=== PATIENT | female | born 1980 | race Caucasian/White ===

== ENCOUNTER 2024-03-13 12:10 | Emergency (ER) | payer MEDICAID ==
[2024-03-13 12:56] VITALS: BP 146/71; PULSE 83
== END 2024-03-13 13:05 | disposition home or self-care (01) ==
LOC: VM.ED 12:10
DX: K59.00 Constipation, unspecified (principal); Z88.5 Allergy status to narcotic agent; Z88.8 Allergy status to other drugs, medicaments and biological substances; Z79.51 Long term (current) use of inhaled steroids; Z79.899 Other long term (current) drug therapy
CPT/HCPCS: 74019; 99283

== ENCOUNTER 2024-09-08 16:02 | Emergency (ER) | payer MEDICAID ==
[2024-09-08 16:34] LABS: BASOPHILS PERCENT AUTO 0.3 % (0.2-1.2); EOSINOPHILS ABSOLUTE AUTO 0.2 x10^3/uL (0.0-0.5); EOSINOPHILS PERCENT AUTO 2.5 % (0.0-4.0); HEMATOCRIT 53.5 % (33.0-47.0); HEMOGLOBIN 18.8 g/dL (12.0-16.0); IMMATURE GRAN ABSOLUTE AUTO 0.01 x10^3/uL (0.00-0.07); LYMPHOCYTES ABSOLUTE AUTO 2.2 x10^3/uL (1.0-4.8); LYMPHOCYTES PERCENT AUTO 33.2 % (25.0-50.0); MEAN CORPUSCULAR HEMOGLOBIN 30.7 pg (26.0-32.0); MEAN CORPUSCULAR HGB CONC 35.1 g/dL (32.0-36.0); MEAN CORPUSCULAR VOLUME 87.3 fL (78.0-93.0); MONOCYTES ABSOLUTE AUTO 0.4 x10^3/uL (0.0-0.8); MONOCYTES PERCENT AUTO 6.3 % (2.0-11.0); NEUTROPHILS ABSOLUTE AUTO 3.9 x10^3/uL (1.8-7.7); NEUTROPHILS PERCENT AUTO 57.6 % (50.0-80.0); PLATELET COUNT,PLT 166 x10^3/uL (130-400); RED BLOOD CELL COUNT 6.13 x10^6/uL (4.00-5.50); WHITE BLOOD CELL COUNT,WBC 6.7 x10^3/uL (4.0-10.0)
[2024-09-08 17:05] LABS: A/G RATIO 0.67; ALANINE AMINOTRANSFERASE,ALT 51 U/L (14-59); ALBUMIN 3.5 g/dL (3.4-5.0); ALKALINE PHOSPHATASE 262 U/L (46-116); AMYLASE 67 U/L (25-115); ASPARTATE AMNIOTRANSFERASE,AST 49 U/L (15-37); BILIRUBIN TOTAL 0.7 mg/dL (0.2-1.0); BLOOD UREA NITROGEN,BUN 18 mg/dL (7-18); CALCIUM 9.8 mg/dL (8.5-10.1); CARBON DIOXIDE,CO2 23 mmol/L (21-32); CHLORIDE,CL 100 mmol/L (98-107); CREATININE 1.3 mg/dL (0.55-1.02); GLUCOSE RANDOM 108 mg/dL (70-99); LIPASE 89 U/L (19-71); POTASSIUM,K 4.6 mmol/L (3.5-5.1); PROTEIN TOTAL,TP 8.7 g/dL (6.4-8.2); SODIUM,NA 134 mmol/L (136-145)
[2024-09-08 17:10] LABS: ANION GAP 15.6 mmol/L (5-15); ESTIMATED GFR 53 mL/min (>=60)
[2024-09-08] MEDS: Sodium Chloride 0.9% 500 ML IV ONE (17:30)
[2024-09-08] MEDS: traMADol 50 MG Tab PO ONE (18:00)
[2024-09-08 18:12] VITALS: BP 145/88; PULSE 82
== END 2024-09-08 18:23 | disposition home or self-care (01) ==
LOC: VM.ED 16:02
DX: R10.11 Right upper quadrant pain (principal); E78.00 Pure hypercholesterolemia, unspecified; Z88.5 Allergy status to narcotic agent; Z88.6 Allergy status to analgesic agent; Z88.8 Allergy status to other drugs, medicaments and biological substances; Z79.899 Other long term (current) drug therapy; Z90.49 Acquired absence of other specified parts of digestive tract
CPT/HCPCS: 71250; 74176; 80053; 82140; 82150; 83690; 85025; 99284; J7030; A9270-GY

== ENCOUNTER 2024-10-20 14:00 | Emergency (ER) | payer MEDICAID ==
[2024-10-20 14:19] VITALS: PULSE 96
[2024-10-20] MEDS: Take Home: LORazepam 0.5 MG Tab, 2 Tab Pack PO ONE (14:27)
[2024-10-20] MEDS: LORazepam 2 MG/ML SDV IM ONE (14:27)
[2024-10-20 15:00] VITALS: BP 170/96
== END 2024-10-20 14:50 | disposition home or self-care (01) ==
LOC: VM.ED 14:00
DX: F41.0 Panic disorder [episodic paroxysmal anxiety] (principal); E66.9 Obesity, unspecified; F17.210 Nicotine dependence, cigarettes, uncomplicated; Z88.5 Allergy status to narcotic agent; Z88.8 Allergy status to other drugs, medicaments and biological substances; Z79.899 Other long term (current) drug therapy; Z90.49 Acquired absence of other specified parts of digestive tract; Z68.41 Body mass index [BMI] 40.0-44.9, adult
CPT/HCPCS: 96372; 99283; 99284; A9270; J2060

== ENCOUNTER 2024-11-22 16:59 | Emergency (ER) | payer MEDICAID ==
[2024-11-22] MEDS ORDERED: Sodium Chloride 0.9% 10 ML Syringe FLUSH PRN (17:32)
[2024-11-22] MEDS: Ondansetron 4 MG/2 ML SDV IVPUSH ONE (17:34)
[2024-11-22] MEDS: HYDROmorphone 1 MG/ML Syringe IVPUSH ONE (17:39)
[2024-11-22 17:49] LABS: BASOPHILS PERCENT AUTO 0.1 % (0.2-1.2); EOSINOPHILS PERCENT AUTO 0.5 % (0.0-4.0); HEMATOCRIT 54.3 % (33.0-47.0); HEMOGLOBIN 18.6 g/dL (12.0-16.0); LYMPHOCYTES ABSOLUTE AUTO 1.4 x10^3/uL (1.0-4.8); LYMPHOCYTES PERCENT AUTO 16.3 % (25.0-50.0); MEAN CORPUSCULAR HEMOGLOBIN 30.2 pg (26.0-32.0); MEAN CORPUSCULAR HGB CONC 34.3 g/dL (32.0-36.0); MEAN CORPUSCULAR VOLUME 88.3 fL (78.0-93.0); MONOCYTES ABSOLUTE AUTO 0.2 x10^3/uL (0.0-0.8); MONOCYTES PERCENT AUTO 1.7 % (2.0-11.0); NEUTROPHILS ABSOLUTE AUTO 7.1 x10^3/uL (1.8-7.7); NEUTROPHILS PERCENT AUTO 80.3 % (50.0-80.0); PLATELET COUNT,PLT 172 x10^3/uL (130-400); RED BLOOD CELL COUNT 6.15 x10^6/uL (4.00-5.50); WHITE BLOOD CELL COUNT,WBC 8.9 x10^3/uL (4.0-10.0)
[2024-11-22 18:05] LABS: A/G RATIO 0.71; ALANINE AMINOTRANSFERASE,ALT 56 U/L (14-59); ALBUMIN 3.6 g/dL (3.4-5.0); ALKALINE PHOSPHATASE 288 U/L (46-116); ASPARTATE AMNIOTRANSFERASE,AST 43 U/L (15-37); BILIRUBIN TOTAL 0.7 mg/dL (0.2-1.0); BLOOD UREA NITROGEN,BUN 13 mg/dL (7-18); C-REACTIVE PROTEIN 1.59 mg/dL (<=0.50); CALCIUM 10.1 mg/dL (8.5-10.1); CARBON DIOXIDE,CO2 24 mmol/L (21-32); CHLORIDE,CL 97 mmol/L (98-107); CREATININE 1.2 mg/dL (0.55-1.02); GLUCOSE RANDOM 127 mg/dL (70-99); POTASSIUM,K 4.4 mmol/L (3.5-5.1); PROTEIN TOTAL,TP 8.7 g/dL (6.4-8.2); SODIUM,NA 133 mmol/L (136-145)
[2024-11-22 18:08] LABS: ANION GAP 16.4 mmol/L (5-15); ESTIMATED GFR 58 mL/min (>=60)
[2024-11-22 18:48] LABS: APPEARANCE,URINE CLEAR (CLEAR); BILIRUBIN,URINE NEGATIVE (NEGATIVE); COLOR,URINE DARK YELLOW (YELLOW); GLUCOSE,URINE NEGATIVE (NEGATIVE); KETONES,URINE NEGATIVE (NEGATIVE); LEUKOCYTE ESTERASE,URINE NEGATIVE (NEGATIVE); NITRITE,URINE NEGATIVE (NEGATIVE); OCCULT BLOOD,URINE TRACE-INTACT (NEGATIVE); PROTEIN,URINE 100 mg/dL (NEGATIVE)
[2024-11-22 18:53] LABS: BACTERIA,URINE OCCASIONAL /HPF (NOT SEEN); MUCUS,URINE FEW /LPF (NOT SEEN); SQUAMOUS EPITHELIAL CELLS,UR FEW /HPF (NOT SEEN); WBC,URINE 0-5 /HPF (NOT SEEN)
[2024-11-22] MEDS: Acetaminophen/oxyCODONE 325-5 MG Tab PO ONE (19:42)
[2024-11-22] MEDS: Cyclobenzaprine 10 MG Tab PO ONE (19:43)
[2024-11-22] MEDS: Take Home: Acetaminophen/oxyCODONE 325-5 MG, 5 Tab Pack PO ONE (19:50)
[2024-11-22 20:19] VITALS: BP 144/74; PULSE 98
== END 2024-11-22 19:56 | disposition left against medical advice (07) ==
LOC: VM.ED 16:59
DX: M54.50 Low back pain, unspecified (principal); E78.00 Pure hypercholesterolemia, unspecified; K21.9 Gastro-esophageal reflux disease without esophagitis; Z88.5 Allergy status to narcotic agent; Z88.8 Allergy status to other drugs, medicaments and biological substances; Z79.899 Other long term (current) drug therapy; Z90.49 Acquired absence of other specified parts of digestive tract
CPT/HCPCS: 36415; 72131; 80053; 81001; 85025; 85652; 86140; 96374; 96375; 99284-25; A9270-GY; J1171; J2405

== ENCOUNTER 2025-01-20 17:52 | Emergency (ER) | payer MEDICAID ==
[2025-01-20 18:04] VITALS: BP 149/89; PULSE 90
[2025-01-20] MEDS: ALPRAZolam 0.25 MG Tab PO ONE (18:17)
[2025-01-20] MEDS: Take Home: LORazepam 0.5 MG Tab, 2 Tab Pack PO ONE (18:27)
== END 2025-01-20 18:35 | disposition home or self-care (01) ==
LOC: VM.ED 17:52
DX: F41.0 Panic disorder [episodic paroxysmal anxiety] (principal); Z88.6 Allergy status to analgesic agent; Z88.8 Allergy status to other drugs, medicaments and biological substances; E66.9 Obesity, unspecified; Z90.49 Acquired absence of other specified parts of digestive tract
CPT/HCPCS: 99283; A9270

== ENCOUNTER 2025-05-19 22:20 | Emergency (ER) | payer MEDICAID ==
[2025-05-19] MEDS ORDERED: Sodium Chloride 0.9% 10 ML Syringe FLUSH PRN (22:44)
[2025-05-19 22:51] LABS: BASOPHILS ABSOLUTE AUTO 0.0 x10^3/uL (0.0-0.2); BASOPHILS PERCENT AUTO 0.2 % (0.2-1.2); EOSINOPHILS ABSOLUTE AUTO 0.3 x10^3/uL (0.0-0.5); EOSINOPHILS PERCENT AUTO 2.2 % (0.0-4.0); IMMATURE GRAN ABSOLUTE AUTO 0.04 x10^3/uL (0.00-0.07); IMMATURE GRAN PERCENT AUTO 0.30 % (0.00-0.43); LYMPHOCYTES ABSOLUTE AUTO 1.8 x10^3/uL (1.0-4.8); LYMPHOCYTES PERCENT AUTO 14.9 % (25.0-50.0); MONOCYTES ABSOLUTE AUTO 0.5 x10^3/uL (0.0-0.8); MONOCYTES PERCENT AUTO 4.3 % (2.0-11.0); NEUTROPHILS ABSOLUTE AUTO 9.5 x10^3/uL (1.8-7.7); NEUTROPHILS PERCENT AUTO 78.1 % (50.0-80.0); PLATELET COUNT,PLT 167 x10^3/uL (130-400); RED BLOOD CELL COUNT 6.07 x10^6/uL (4.00-5.50); WHITE BLOOD CELL COUNT,WBC 12.2 x10^3/uL (4.0-10.0)
[2025-05-19 23:05] LABS: BLOOD UREA NITROGEN,BUN 10.0 mg/dL (7-18); CARBON DIOXIDE,CO2 23.0 mmol/L (21-32); CREATININE 1.1 mg/dL (0.55-1.02); EST CRCL DRUG DOSING (CG) 64.13 mL/min; GLUCOSE RANDOM 160.0 mg/dL (70-99)
[2025-05-19 23:10] LABS: CHLORIDE,CL 100.0 mmol/L (98-107); POTASSIUM,K 4.4 mmol/L (3.5-5.1); SODIUM,NA 134.0 mmol/L (136-145)
[2025-05-19 23:11] LABS: ESTIMATED GFR 64.0 mL/min (>=60)
[2025-05-19 23:17] VITALS: PULSE 118
[2025-05-19 23:30] LABS: CORONAVIRUS COVID-19 NAA NEGATIVE (NEGATIVE); INFLUENZA A NAA NEGATIVE (NEGATIVE); INFLUENZA B NAA NEGATIVE (NEGATIVE); RESPIRATORY SYNCYTIAL VIR NAA NEGATIVE (NEGATIVE)
[2025-05-19] MEDS ORDERED: Ketorolac 15 MG/ML SDV IVPUSH ONE (23:58)
[2025-05-20] MEDS: Iopamidol 755 Mg/ML 100 ML Bottle IVPUSH ONE (00:17)
[2025-05-20] MEDS: Ondansetron 4 MG/2 ML SDV IVPUSH ONE (00:25)
[2025-05-20 01:12] VITALS: BP 110/56
[2025-05-20] MEDS: Take Home: Acetaminophen/HYDROcodone 325-5 MG, 5 Tab Pack PO ONE (01:13)
== END 2025-05-20 01:33 | disposition home or self-care (01) ==
LOC: VM.ED 22:20
DX: J18.9 Pneumonia, unspecified organism (principal); E78.00 Pure hypercholesterolemia, unspecified; Z88.8 Allergy status to other drugs, medicaments and biological substances; Z88.5 Allergy status to narcotic agent; Z88.2 Allergy status to sulfonamides; Z79.899 Other long term (current) drug therapy
CPT/HCPCS: 71045; 71275; 80048; 84484; 85025; 85379; 87637; 93005; 93010; 96374; 96375; 99284; 99285; A9270; J0696; J1171; J2405; Q9967

== ENCOUNTER 2025-05-26 18:37 | Emergency (ER) | payer MEDICAID ==
[2025-05-26 18:53] VITALS: BP 140/70; PULSE 79
[2025-05-26 19:15] LABS: BASOPHILS ABSOLUTE AUTO 0.0 x10^3/uL (0.0-0.2); BASOPHILS PERCENT AUTO 0.3 % (0.2-1.2); EOSINOPHILS ABSOLUTE AUTO 0.5 x10^3/uL (0.0-0.5); EOSINOPHILS PERCENT AUTO 6.1 % (0.0-4.0); IMMATURE GRAN ABSOLUTE AUTO 0.03 x10^3/uL (0.00-0.07); IMMATURE GRAN PERCENT AUTO 0.40 % (0.00-0.43); LYMPHOCYTES ABSOLUTE AUTO 2.1 x10^3/uL (1.0-4.8); LYMPHOCYTES PERCENT AUTO 27.0 % (25.0-50.0); MONOCYTES ABSOLUTE AUTO 0.4 x10^3/uL (0.0-0.8); MONOCYTES PERCENT AUTO 5.3 % (2.0-11.0); NEUTROPHILS ABSOLUTE AUTO 4.8 x10^3/uL (1.8-7.7); NEUTROPHILS PERCENT AUTO 60.9 % (50.0-80.0); PLATELET COUNT,PLT 172 x10^3/uL (130-400); RED BLOOD CELL COUNT 5.82 x10^6/uL (4.00-5.50); WHITE BLOOD CELL COUNT,WBC 7.9 x10^3/uL (4.0-10.0)
[2025-05-26 19:43] LABS: POTASSIUM,K 4.4 mmol/L (3.5-5.1); SODIUM,NA 137 mmol/L (136-145)
[2025-05-26 19:44] LABS: BLOOD UREA NITROGEN,BUN 13 mg/dL (7-18); CARBON DIOXIDE,CO2 26 mmol/L (21-32); CHLORIDE,CL 101 mmol/L (98-107); CREATININE 1.2 mg/dL (0.55-1.02); ESTIMATED GFR 58 mL/min (>=60); GLUCOSE RANDOM 108 mg/dL (70-99)
[2025-05-26 19:45] LABS: ASPARTATE AMNIOTRANSFERASE,AST 39 U/L (15-37); BILIRUBIN TOTAL 0.7 mg/dL (0.2-1.0); PROTEIN TOTAL,TP 7.8 g/dL (6.4-8.2)
[2025-05-26 20:31] LABS: A/G RATIO 0.70; ALANINE AMINOTRANSFERASE,ALT 34 U/L (14-59)
== END 2025-05-26 20:45 | disposition home or self-care (01) ==
LOC: VM.ED 18:37
DX: R07.1 Chest pain on breathing (principal); E78.00 Pure hypercholesterolemia, unspecified; K21.9 Gastro-esophageal reflux disease without esophagitis; Z88.8 Allergy status to other drugs, medicaments and biological substances; Z88.5 Allergy status to narcotic agent; Z79.899 Other long term (current) drug therapy; Z90.49 Acquired absence of other specified parts of digestive tract
CPT/HCPCS: 36415; 71046; 80053; 85025; 99283

== ENCOUNTER 2025-07-20 21:28 | Emergency (ER) | payer MEDICAID ==
[2025-07-20 23:21] VITALS: BP 181/95; PULSE 102
== END 2025-07-20 22:13 | disposition home or self-care (01) ==
LOC: VM.ED 21:28
DX: F41.9 Anxiety disorder, unspecified (principal); E66.9 Obesity, unspecified; Z76.5 Malingerer [conscious simulation]; Z79.899 Other long term (current) drug therapy; Z88.8 Allergy status to other drugs, medicaments and biological substances; Z90.49 Acquired absence of other specified parts of digestive tract; Z68.39 Body mass index [BMI] 39.0-39.9, adult
CPT/HCPCS: 99283; 99284; A9270-GY

== ENCOUNTER 2025-07-21 12:19 | Emergency (ER) | payer MEDICAID ==
[2025-07-21 16:14] VITALS: BP 135/81; PULSE 86
== END 2025-07-21 14:11 | disposition home or self-care (01) ==
LOC: VM.ED 12:19
DX: F41.9 Anxiety disorder, unspecified (principal); F19.20 Other psychoactive substance dependence, uncomplicated; E66.9 Obesity, unspecified; Z88.5 Allergy status to narcotic agent; Z88.8 Allergy status to other drugs, medicaments and biological substances; Z79.899 Other long term (current) drug therapy; Z90.49 Acquired absence of other specified parts of digestive tract; Z68.30 Body mass index [BMI] 30.0-30.9, adult
CPT/HCPCS: 99283; A9270